=== PATIENT | female | born 1960 | race Caucasian/White ===

== ENCOUNTER → 2019-01-12 | Outpatient (CLI) | payer OTHER ==
--- NOTE | 2019-01-12 13:18 | REP ---
HISTORY: Knee sprain with knee pain. COMPARISON: No priors. Minimal calcifications are seen in the medial compartment with mild medial compartmental narrowing and marginal osteophytosis. There is no acute fracture, dislocation or subluxation. IMPRESSION: Chronic changes. Electronically Signed by Andrea Medeiros DO 01/12/2019 01:22 P
== END ==
LOC: M WUC 11:51
PROVIDERS: ATTEND Physician Assistant
DX: M17.11 Unilateral primary osteoarthritis, right knee (principal); S83.411A Sprain of medial collateral ligament of right knee, initial encounter; X58.XXXA Exposure to other specified factors, initial encounter; Y92.9 Unspecified place or not applicable

== ENCOUNTER 2024-09-12 10:55 | Day surgery (SDC) | payer MEDICARE ==
[~2024-09-12] VITALS: Ht 172.7 cm; Wt 97.1 kg
[~2024-09-12 10:55] MED LIST: OMEP-173 PO; VITA100093 PO
[2024-09-12] MEDS: PHENYLEPHRINE 2.5% OPHTH SOL 2ML OS SCH (11:58)
[2024-09-12] MEDS: CYCLOPENTOLATE 1% OPHTH SOLN 2ML BTL OS SCH (11:58)
[2024-09-12] MEDS: TROPICAMIDE 1% OPHTH SOLN 15ML OS SCH (11:58)
[2024-09-12] MEDS: PHENYLEPHRINE 10% OPHTH SOL 5ML OS PRN (11:59)
[2024-09-12] MEDS: LIDOCAINE 3.5 % 1ML OPHTH TOPICAL GEL OU ONE (11:59)
[2024-09-12] MEDS: OFLOXACIN 0.3 % (OCUFLOX) OPTH SOL 5ML OS ONE (11:59)
[2024-09-12] MEDS ORDERED: fentaNYL 100 MCG/2 ML INJECTION As Ordered ONE (12:29)
[2024-09-12] MEDS ORDERED: MIDAZOLAM INJ 2MG/2ML VIAL As Ordered ONE (12:29)
[2024-09-12] MEDS: LIDOCAINE 1% SDV 5ML VIAL As Ordered ONE (13:24)
[2024-09-12] MEDS: BSS IRRIG/VANCO(10MG)/TOBRA(5MG)/EPINEPH(1:1000-0.5CC)500ML BAG-ORONLY As Ordered ONE (13:26)
[2024-09-12] MEDS: CEFUROXIME 1MG/0.1ML INTRACAMERAL INJ As Ordered ONE (13:33)
[2024-09-12 13:37] VITALS: BP 129/85; TEMP 97.5; O2SAT 97
== END 2024-09-12 13:52 | disposition home or self-care (01) ==
LOC: M SDC 10:55
PROVIDERS: ATTEND Ophthalmology
DX: H25.12 Age-related nuclear cataract, left eye (principal); Z86.69 Personal history of other diseases of the nervous system and sense organs; Z79.899 Other long term (current) drug therapy
CPT/HCPCS: 66984; J0697; J2250; J3010; V2632

== ENCOUNTER 2024-09-19 10:48 | Day surgery (SDC) | payer MEDICARE ==
[~2024-09-19] VITALS: Ht 172.7 cm; Wt 97.5 kg
[~2024-09-19 10:48] MED LIST changes: +MIDAZOLAM INJ 2MG/2ML VIAL As Ordered ONE; +PHENYLEPHRINE 10% OPHTH SOL 5ML OD PRN; +fentaNYL 100 MCG/2 ML INJECTION As Ordered ONE
[2024-09-19] MEDS: OFLOXACIN 0.3 % (OCUFLOX) OPTH SOL 5ML OD ONE (12:53)
[2024-09-19] MEDS: TROPICAMIDE 1% OPHTH SOLN 15ML OD SCH (12:53)
[2024-09-19] MEDS: CYCLOPENTOLATE 1% OPHTH SOLN 2ML BTL OD SCH (12:53)
[2024-09-19] MEDS: PHENYLEPHRINE 2.5% OPHTH SOL 2ML OD SCH (12:53)
[2024-09-19] MEDS: LIDOCAINE 3.5 % 1ML OPHTH TOPICAL GEL OU ONE (12:53)
[2024-09-19] MEDS: LIDOCAINE 1% SDV 5ML VIAL As Ordered ONE (14:48)
[2024-09-19] MEDS: BSS IRRIG/VANCO(10MG)/TOBRA(5MG)/EPINEPH(1:1000-0.5CC)500ML BAG-ORONLY As Ordered ONE (14:51)
[2024-09-19] MEDS: CEFUROXIME 1MG/0.1ML INTRACAMERAL INJ As Ordered ONE (14:51)
[2024-09-19 15:03] VITALS: BP 140/85; TEMP 97.5; O2SAT 96
== END 2024-09-19 15:30 | disposition home or self-care (01) ==
LOC: M SDC 10:48
PROVIDERS: ATTEND Ophthalmology
DX: H25.11 Age-related nuclear cataract, right eye (principal); E78.5 Hyperlipidemia, unspecified; K57.92 Diverticulitis of intestine, part unspecified, without perforation or abscess without bleeding; K21.9 Gastro-esophageal reflux disease without esophagitis; Z79.899 Other long term (current) drug therapy
CPT/HCPCS: 66984; J0697; J2250; J3010; V2632